=== PATIENT | female | born 1980 | race Hispanic/Latino ===

== ENCOUNTER 2019-10-24 16:37 | Emergency (ER) | payer SELFPAY | END 2019-10-24 19:44 | disposition home or self-care (01) | LOC: EDH 16:37 | DX: S80.02XA Contusion of left knee, initial encounter (principal); S90.02XA Contusion of left ankle, initial encounter; W01.0XXA Fall on same level from slipping, tripping and stumbling without subsequent striking against object, initial encounter; Y93.89 Activity, other specified; Y92.89 Other specified places as the place of occurrence of the external cause; Y99.8 Other external cause status | CPT/HCPCS: 73562; 73610 ==

== ENCOUNTER 2021-04-17 20:20 | Emergency (ER) | payer SELFPAY ==
[~2021-04-17] VITALS: Ht 154.9 cm; Wt 147.9 kg
[2021-04-17 20:58] VITALS: BP 141/68
[2021-04-17] MEDS ORDERED: ACETAMINOPHEN 500 MG TABLET PO ONE (21:00)
[2021-04-17] MEDS ORDERED: D-ME1POW16 PO (21:15)
[2021-04-17] MEDS ORDERED: NIRM1TAB PO (21:15)
== END 2021-04-17 21:20 | disposition home or self-care (01) ==
LOC: EDH 20:20
DX: U07.1 COVID-19 (principal); E66.01 Morbid (severe) obesity due to excess calories; Z68.44 Body mass index [BMI] 60.0-69.9, adult
CPT/HCPCS: 87635; 87880; 99283; C9803